=== PATIENT | male | born 1990 | race Caucasian/White ===

== ENCOUNTER 2023-08-16 12:46 | Emergency (ER) | payer MEDICAID ==
[~2023-08-16] VITALS: Ht 172.7 cm; Wt 84.1 kg
[2023-08-16 12:51] VITALS: TEMP 97.4
[2023-08-16 14:16] VITALS: BP 141/86; PULSE 70; RESP 16
[2023-08-16] MEDS ORDERED: CLON-592 PO (15:09)
[2023-08-16] MEDS ORDERED: POLY238P PO (15:09)
[2023-08-16] MEDS ORDERED: ACYC400T20 PO (15:09)
== END 2023-08-16 15:42 | disposition home or self-care (01) ==
LOC: EMS 12:49
DX: S10.95XA Superficial foreign body of unspecified part of neck, initial encounter (principal); K59.00 Constipation, unspecified; F41.9 Anxiety disorder, unspecified; Z88.0 Allergy status to penicillin; Z88.8 Allergy status to other drugs, medicaments and biological substances; Z98.890 Other specified postprocedural states; X58.XXXA Exposure to other specified factors, initial encounter; Y93.89 Activity, other specified; Y92.89 Other specified places as the place of occurrence of the external cause; Y99.8 Other external cause status
CPT/HCPCS: 70360; 99283

== ENCOUNTER 2023-08-30 17:04 | Emergency (ER) | payer MEDICAID ==
[~2023-08-30] VITALS: Ht 165.1 cm; Wt 82.0 kg
[~2023-08-30 17:04] MED LIST: ACYC400T20 PO; CLON-592 PO; POLY238P PO
[2023-08-30 17:06] VITALS: TEMP 98.3
[2023-08-30 18:08] VITALS: BP 124/80; PULSE 83; RESP 16
[2023-08-30] MEDS ORDERED: SILD25 PO (18:34)
== END 2023-08-30 18:41 | disposition home or self-care (01) ==
LOC: EMS 17:06
DX: F41.9 Anxiety disorder, unspecified (principal); N52.9 Male erectile dysfunction, unspecified; Z98.890 Other specified postprocedural states; Z88.0 Allergy status to penicillin; Z88.8 Allergy status to other drugs, medicaments and biological substances
CPT/HCPCS: 99283; Z7502

== ENCOUNTER 2023-11-10 21:38 | Emergency (ER) | payer MEDICAID, OTHER ==
[~2023-11-10] VITALS: Ht 167.6 cm; Wt 86.4 kg
[~2023-11-10 21:38] MED LIST changes: -ACYC400T20 PO; -CLON-592 PO; -POLY238P PO; +SILD25 PO
[2023-11-10 21:43] VITALS: BP 150/75; PULSE 79; RESP 18; TEMP 98.2
[2023-11-10] MEDS ORDERED: ACYC-138 PO (23:23)
== END 2023-11-10 23:40 | disposition home or self-care (01) ==
LOC: EMS 21:38
DX: N52.9 Male erectile dysfunction, unspecified (principal); R51.9 Headache, unspecified; F17.210 Nicotine dependence, cigarettes, uncomplicated; Z76.0 Encounter for issue of repeat prescription; Z98.890 Other specified postprocedural states; Z88.0 Allergy status to penicillin; Z88.8 Allergy status to other drugs, medicaments and biological substances
CPT/HCPCS: 99281; Z7502